=== PATIENT | male | born 1970 | race Caucasian/White ===

== ENCOUNTER 2017-09-26 17:06 | Inpatient (IN) | payer OTHER ==
[~2017-09-26] VITALS: Ht 172.7 cm; Wt 79.8 kg
--- NOTE | ~2017-09-26 | EKG ---
[address] [place] [address] ELECTROCARDIOGRAM REPORT Name: CHIKIS RAZO Emi Room #: 362-P ADM IN M.R.#: [id number] Admission: 09/26/17 Attend Phys: Beverley Olvera MD Discharge: Date of : 70 Report #: [id number] THIS REPORT FOR: //name// [facility] ED Test Date: 2017-09-26 Test Time: 17:15:30 Pat Name: CHIKIS RAZO Department: Room: 362 P Gender: [employer] Operator: HÉCTOR : 1970 Requested By: Fady Recinos Order Number: [id number] MD: Carlin Flanagan Measurements Intervals [place] Rate: 105 P: 41 CO: 160 QRS: 44 QRSD: 82 T: 24 QT: 324 QTc: 429 Interpretive Statements Sinus tachycardia Anteroseptal infarct, old No previous ECG available for comparison Electronically Signed On 09-27-2017 8:08:54 CDT by Carlin Flanagan [email or web address] <ELECTRONICALLY SIGNED> By: Carlin Flanagan MD, [facility] 09/27/17 0808 1715 1715 Carlin Flanagan MD, FACC /EPI
[2017-09-26 17:06] VITALS: BP 161/117
[2017-09-26 17:32] LABS: HEMOGLOBIN 17.6 gm/dL (14.0-18.0); RDW 14.3 % (10.5-14.5)
[2017-09-26 17:34] LABS: HEMATOCRIT 44.1 % (42.0-52.0); MCH 36.2 pg (26.0-34.0); MCHC 39.8 g/dL (28.0-37.0); MCV 90.9 fL (80.0-100.0); PLATELET COUNT 159 thou/uL (150-400); RBC 4.86 mil/uL (4.50-6.00); WBC 5.8 thou/uL (4.0-11.0)
[2017-09-26] MEDS ORDERED: ZOLOFT50 MG PO (17:54)
[2017-09-26] MEDS ORDERED: NEURONTIN100 MG PO (17:55)
[2017-09-26 18:25] LABS: ABSOLUTE NEUTROPHILS 3.9 thou/uL (1.4-8.2)
[2017-09-26 18:28] LABS: LARGE PLATELETS RARE; PLATELET ESTIMATE NORMAL
[2017-09-26 18:29] LABS: TARGET CELLS OCCASIONAL
[2017-09-26 19:52] VITALS: BP 158/110
[2017-09-26 21:20] VITALS: BP 114/110
[2017-09-26 22:02] LABS: POTASSIUM 3.9 mmol/L (3.5-5.1)
[2017-09-26 22:32] LABS: CREATININE 0.9 mg/dL (0.7-1.3)
[2017-09-26 22:33] LABS: CALCIUM 7.6 mg/dL (8.5-10.1); TOTAL BILIRUBIN 0.7 mg/dL (<0.1-1.0)
[2017-09-26 22:34] LABS: ALBUMIN 2.9 g/dL (3.4-5.0); TOTAL PROTEIN 5.6 g/dL (6.4-8.2)
[2017-09-27 00:10] VITALS: BP 136/99
[2017-09-27 04:10] VITALS: BP 139/102
[2017-09-27 06:57] LABS: POTASSIUM 4.1 mmol/L (3.5-5.1)
[2017-09-27 08:06] LABS: TOTAL BILIRUBIN 0.7 mg/dL (<0.1-1.0)
[2017-09-27 08:07] LABS: ALBUMIN 2.9 g/dL (3.4-5.0); CALCIUM 7.8 mg/dL (8.5-10.1); MAGNESIUM 1.8 mg/dL (1.8-2.4); TOTAL PROTEIN 5.3 g/dL (6.4-8.2)
[2017-09-27 08:50] VITALS: BP 147/112
[2017-09-27 16:04] VITALS: BP 128/86
[2017-09-27 20:44] VITALS: BP 134/94
[2017-09-28 05:13] VITALS: BP 104/101; BP 149/101
[2017-09-28 08:17] VITALS: BP 159/113
[2017-09-28] MEDS ORDERED: VITAMIN B-1100 M2 PO (08:45)
[2017-09-28] MEDS ORDERED: PRENATAL PO (08:46)
[2017-09-28] MEDS ORDERED: PROTONIX IV40 MG PO (08:46)
[2017-09-28] MEDS ORDERED: ZOLOFT50 MG PO (08:48)
[2017-09-28 08:50] LABS: POTASSIUM 3.9 mmol/L (3.5-5.1)
[2017-09-28 08:51] LABS: CALCIUM 8.2 mg/dL (8.5-10.1); MAGNESIUM 1.8 mg/dL (1.8-2.4); PHOSPHORUS 4.3 mg/dL (2.5-4.9)
[2017-09-28 11:42] VITALS: BP 148/105
[2017-09-28 15:48] VITALS: BP 139/99
[2017-09-28 20:13] VITALS: BP 141/99
[2017-09-29 05:03] VITALS: BP 136/93
[2017-09-29 07:53] VITALS: BP 127/92
[2017-09-29 11:34] VITALS: BP 140/99
[2017-09-29] MEDS ORDERED: REMERON15 MG PO (12:20)
[2017-09-29 12:44] VITALS: BP 140/99
[2017-09-29 15:28] VITALS: BP 140/99
== END 2017-09-29 13:00 | disposition home or self-care (01) | DRG 432 ==
LOC: ER 17:06 → 3W 18:17 → EROBS 18:17 → 3W 19:53
PROVIDERS: Emergency Medicine; Internal Medicine; Nurse Practitioner Family
DX: K70.10 Alcoholic hepatitis without ascites (principal); E43 Unspecified severe protein-calorie malnutrition; E87.1 Hypo-osmolality and hyponatremia; F10.239 Alcohol dependence with withdrawal, unspecified; R00.0 Tachycardia, unspecified; R25.1 Tremor, unspecified; F32.9 Major depressive disorder, single episode, unspecified; Z79.899 Other long term (current) drug therapy; Z68.26 Body mass index [BMI] 26.0-26.9, adult
CPT/HCPCS: 10879